=== PATIENT | female | born 1995 | race Caucasian/White ===

== ENCOUNTER 2021-06-05 01:05 | Emergency (ER) | payer SELFPAY ==
[~2021-06-05 01:05] MED LIST: CYCLOBENZAPRINE10 MG PO; LODINE CAP 300300 MG PO; MIRALAX17 GM PO; NAPROSYN500 MG PO
[2021-06-05 02:51] LABS: HEMOGLOBIN 14.5 gm/dl (12.3-15.3); RED BLOOD COUNT 4.5 M/UL (4.00-5.10); WHITE BLOOD COUNT 6.8 K/UL (4.5-11.0)
[2021-06-05 03:09] LABS: BUN/CREATININE RATIO 26 (0-10)
[2021-06-05] MEDS ORDERED: PHENERGAN 12.12.5 MG PR (06:22)
[2021-06-05] MEDS ORDERED: ZOFRAN 4 MG TAB4 MG PO (06:22)
== END 2021-06-05 07:22 | disposition home or self-care (01) ==
LOC: ER1 01:05
PROVIDERS: Physician Assistant
DX: A08.4 Viral intestinal infection, unspecified (principal); Z20.822 Contact with and (suspected) exposure to COVID-19; F17.290 Nicotine dependence, other tobacco product, uncomplicated
CPT/HCPCS: 0240U; 80053; 83690; 84703; 85025; 96374; 96375; 99284; C9113; J2550; Q9967